=== PATIENT | female | born 1965 | race Caucasian/White ===

== ENCOUNTER 2019-06-10 22:15 | Inpatient (IN) | payer MEDICARE, BC ==
[~2019-06-10] VITALS: Ht 165.1 cm; Wt 37.6 kg
[2019-06-10 21:40] VITALS: BP 87/79
[2019-06-10 22:00] VITALS: BP 97/71
[2019-06-10 22:15] VITALS: BP 106/71
[2019-06-10 22:30] VITALS: BP 116/76
[2019-06-10 23:00] VITALS: BP 110/72
[2019-06-10] MEDS ORDERED: guaiFENesin ORAL 200 MG/10 ML LIQUID. PO PRN (23:15)
[2019-06-10] MEDS ORDERED: levOFLOXacin PER PHARMACY. MC PRN (23:15)
[2019-06-10] MEDS ORDERED: ACETAMINOPHEN 325 MG TABLET. PO PRN (23:15)
[2019-06-10] MEDS ORDERED: ONDANSETRON PF 4 MG/2 ML VIAL. IVP PRN (23:30)
[2019-06-10] MEDS ORDERED: IV NORMAL SALINE 1000ML BAG 1,000 ML IV ONE (23:30)
[2019-06-10] MEDS ORDERED: MORPHINE SULFATE 2 MG/ML VIAL. IV PRN (23:30)
[2019-06-11] VITALS (24 sets, daily range): BP systolic 102–171; BP diastolic 61–98
[2019-06-11] MEDS: IV NORMAL SALINE 1000ML BAG 1,000 ML IV SCH ×3 (00:56→20:28)
--- NOTE | 2019-06-11 01:45 | NUR ---
Pt brought to ICU room 110 at [place]140 [place] by two medics. Pt transferred with 4x assist to ICU bed; kept on BiPap during transfer. Pt tachycardic on admission. Pulse was 130-140s. All other VSS; pt afebrile. Pt alert and oriented to self and place, but confused related to time and situation. Pt lungs slightly coarse in the lower lobes. Pt appears malnourished; the bedscale read 66.3 lbs upon admission and pt stated she is 65 inches tall. Pt reported a regular appetite and diet at home. Pt unable to self report home meds, but did report her pharmacy. Called admitting physician, Dr. Berger to update on pt admission and status. Received orders for 1L bolus NS, PRN Lortab, PRN Robutussin, PRN Tylenol, NS at 100ml/hr, Levaquin per pharmacy, pulmonary consult, cardiology consult, NPO, Zofran PRN, Morphine PRN, CBC/BMP/PT/INR in am. Orders all entered into system. Pt pulse was down to 120s at rest. Pt has started pulling at bipap mask, needs reminded she needs to wear it to breathe efficiently right now. Pt is cooperative for short periods of time, then forgetful. Pt is within sight of care team. Will continue to monitor.
--- NOTE | 2019-06-11 04:14 | EKG ---
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
[2019-06-11 04:17] LABS: BASE EXCESS ABG 6 mmol/L (-3-3); FIO2 ABG 40; HCO3 ABG 32 mmol/L (21-28); PCO2 ABG 50 mmHg (35-46); PO2 ABG 95 mmHg (75-108); SAT O2 ABG 97 % (92-99)
--- NOTE | 2019-06-11 04:25 | NUR ---
Pt pulse continues to be in 120-130s, with SBP now in the 110s. Call placed to on-call , Dr. Saran Berger. Updated on pt status. Received orders to draw ABG, repeat EKG now. Orders entered into system. Will continue to monitor.
[2019-06-11 06:55] LABS: BASO # 0.1 x10^3/uL (0.0-0.2); BASO % 0 % (0-3); EOS % 0 % (0-3); HEMATOCRIT 39.5 % (36.0-47.0); HEMOGLOBIN 12.7 g/dL (12.0-15.5); LYMPH # 0.5 x10^3/uL (1.0-4.8); LYMPH % 2 % (24-48); MEAN CORPUSCULAR HEMOGLOBIN 31 pg (25-35); MEAN CORPUSCULAR HGB CONC 32 g/dL (31-37); MEAN CORPUSCULAR VOLUME 96 fL (79-100); MONO # 1.4 x10^3/uL (0.0-1.1); MONO % 5 % (0-9); NEUT # 24.7 x10^3/uL (1.8-7.7); NEUT % 92 % (31-73); PLATELET COUNT 289 x10^3/uL (140-400); RED BLOOD COUNT 4.14 x10^6/uL (3.50-5.40); WHITE BLOOD COUNT 26.8 x10^3/uL (4.0-11.0)
[2019-06-11 07:05] LABS: CALCIUM 8.2 mg/dL (8.5-10.1); CREATININE 0.8 mg/dL (0.6-1.0); GFR 74.7; POTASSIUM 4.2 mmol/L (3.5-5.1)
[2019-06-11 07:07] LABS: PROTHROMBIN TIME PATIENT 17.3 SEC (11.7-14.0)
[2019-06-11 10:23] LABS: % BANDS 2 % (0-9); % LYMPHS 2 % (24-48); % MONOS 5 % (0-10); % SEGS 91 % (35-66); PLT ESTIMATE ADEQUATE (ADEQUATE)
[2019-06-11 10:24] LABS: ANISOCYTOSIS SLIGHT; POLYCHROMASIA SLIGHT; TOXIC GRANULATION SLIGHT; TOXIC VACUOLATION SLIGHT
[2019-06-11] MEDS ORDERED: predniSONE 10 MG TABLET PO ONE (11:15)
[2019-06-11] MEDS ORDERED: NICOTINE 21MG PATCH. TD PRN (11:15)
--- NOTE | 2019-06-11 11:18 | PDOC1 ---
History and Physical Date of Admission Date of Admission DATE: 06/11/19 TIME: 11:07 Identification/Chief Complaint Chief Complaint SOA Source Source: Caregiver, Chart review, Patient History of Present Illness History of Present Illness She is a transfer from [place], She weighs 60 lbs, BMI 11, he tells me PCP Aware of it (WeighT) and had her thyroid checked and mentions she is due thyroid scan. She is not on any meds at home She came in severe SOA, ABG ph low, NIPPV at [facility], tachypneic, hypo tensive, with CXR that was read as normal After 500cc bolus, bipap er treatment, PH 7,4 with PCo2 60s and O2 60s and transferred here SHe had some NSTEMI leakage mild trop, but denied CP, She has no personal hx CAD, We opted not to do any lovenox or heparin as figured this could be from demand ischemia from here severe respi failure, She responded to ER tx at [facility]. But overnight, still tachy 130s-140s, with BP low side. I ordered 1L bolus and nS 100cc to maintain Pulmo and cards have been consulted , I started levaquin per pharmacy - started at [facility] She smokes a pack a day x 14 yrs She mentions weight loss maybe in 6 mos when i pried Past Medical History Cardiovascular: No pertinent hx Pulmonary: Bronchitis Musculoskeletal: Other (weight loss in the last 6mos) Past Surgical History Past Surgical History: No pertinent history Family History Family History: No Significant Social History Smoke: 1 pack per day ALCOHOL: none Drugs: None Current Medications Current Medications Current Medications Sodium Chloride 1,000 ml @ 1,000 mls/hr 1X ONCE IV Last administered on 06/10/19at 23:48; Start 06/10/19 at 23:30; Stop 06/11/19 at 00:29; Status DC Sodium Chloride 1,000 ml @ 100 mls/hr Q10H IV Last administered on 06/11/19at 00:56; Start 06/11/19 at 00:30 Acetaminophen/ Hydrocodone Bitart (Lortab 5/325) 1 tab PRN Q4HRS PRN PO PAIN; Start 06/10/19 at 23:15 Acetaminophen (Tylenol) 650 mg PRN Q6HRS PRN PO FEVER; Start 06/10/19 at 23:15 Guaifenesin (Robitussin) 200 mg PRN Q4HRS PRN PO COUGH; Start 06/10/19 at 23:15 Morphine Sulfate (Morphine Sulfate) 2 mg PRN Q2HR PRN IV PAIN Last administered on 06/11/19at 02:18; Start 06/10/19 at 23:30 Ondansetron HCl (Zofran) 4 mg PRN Q6HRS PRN IVP NAUSEA/VOMITING; Start 06/10/19 at 23:30 Levofloxacin/ Dextrose (Levaquin Per Pharmacy) 1 each PRN DAILY PRN MC SEE COMMENTS; Start 06/10/19 at 23:15 Levofloxacin/ Dextrose 100 ml @ 100 mls/hr Q24H IV ; Start 06/11/19 at 20:00 Albuterol/ Ipratropium (Duoneb) 3 ml RTQID NEB ; Start 06/11/19 at 12:00 Multivitamins (Thera M Plus) 1 tab DAILY PO ; Start 06/11/19 at 09:00 Allergies Allergies: Coded Allergies: Sulfa (Sulfonamide Antibiotics) (Verified Allergy, Unknown, 06/10/19) ROS Review of System weak, weight loss, SOA, per HPI,a ll else is neg Physical Exam General: Alert, Oriented X3, Cooperative, No acute distress HEENT: Atraumatic, PERRLA, Other (non palpable thyroid gland) Lungs: Clear to auscultation, Normal air movement Heart: S1S2, no thrills, no rubs, other (sinus tachy 130s) Cardiovascular: S1, S2 Breasts: Normal, Rt breast nml w/o mass, Lt breast nml w/o mass, Nipples normal Abdomen: Normal bowel sounds, Soft, No tenderness, No hepatosplenomegaly, No masses Rectal Exam: not examined PELVIC: Nml ext genitalia Extremities: No clubbing, No cyanosis, No edema, Normal pulses, No tenderness/swelling Skin: No rashes, No breakdown, No significant lesion Neuro: Normal gait, Normal speech, Strength at 5/5 X4 ext, Normal tone, Sensation intact, Cranial nerves 3-12 NL, Reflexes 2+ Psych/Mental Status: Mental status NL, Mood NL Vitals Vitals Vital Signs Date Time Temp Pulse Resp B/P (MAP) Pulse Ox O2 Delivery O2 Flow Rate FiO2 06/11/19 06:00 131 24 123/94 (104) 100 BiPAP/CPAP 06/11/19 04:00 99.5 99.5 Labs Labs Laboratory Tests Test 06/11/19 04:05 06/11/19 06:35 O2 Saturation 97 % (92-99) Arterial Blood pH 7.43 (7.35-7.45) Arterial Blood pCO2 at Patient Temp 50 mmHg (35-46) Arterial Blood pO2 at Patient Temp 95 mmHg (75-108) Arterial Blood HCO3 32 mmol/L (21-28) Arterial Blood Base Excess 6 mmol/L (-3-3) FiO2 40 White Blood Count 26.8 x10^3/uL (4.0-11.0) Red Blood Count 4.14 x10^6/uL (3.50-5.40) Hemoglobin 12.7 g/dL (12.0-15.5) Hematocrit 39.5 % (36.0-47.0) Mean Corpuscular Volume 96 fL (79-100) Mean Corpuscular Hemoglobin 31 pg (25-35) Mean Corpuscular Hemoglobin Concent 32 g/dL (31-37) Red Cell Distribution Width 16.0 % (11.5-14.5) Platelet Count 289 x10^3/uL (140-400) Neutrophils (%) (Auto) 92 % (31-73) Lymphocytes (%) (Auto) 2 % (24-48) Monocytes (%) (Auto) 5 % (0-9) Eosinophils (%) (Auto) 0 % (0-3) Basophils (%) (Auto) 0 % (0-3) Neutrophils # (Auto) 24.7 x10^3/uL (1.8-7.7) Lymphocytes # (Auto) 0.5 x10^3/uL (1.0-4.8) Monocytes # (Auto) 1.4 x10^3/uL (0.0-1.1) Eosinophils # (Auto) 0.0 x10^3/uL (0.0-0.7) Basophils # (Auto) 0.1 x10^3/uL (0.0-0.2) Segmented Neutrophils % 91 % (35-66) Band Neutrophils % 2 % (0-9) Lymphocytes % 2 % (24-48) Monocytes % 5 % (0-10) Toxic Granulation Slight Toxic Vacuolation Slight Platelet Estimate Adequate (ADEQUATE) Large Platelets Occ Polychromasia Slight Anisocytosis Slight Prothrombin Time 17.3 SEC (11.7-14.0) Prothromb Time International Ratio 1.4 (0.8-1.1) Sodium Level 145 mmol/L (136-145) Potassium Level 4.2 mmol/L (3.5-5.1) Chloride Level 101 mmol/L (98-107) Carbon Dioxide Level 35 mmol/L (21-32) Anion Gap 9 (6-14) Blood Urea Nitrogen 46 mg/dL (7-20) Creatinine 0.8 mg/dL (0.6-1.0) Estimated GFR (Cockcroft-Gault) 74.7 Glucose Level 86 mg/dL (70-99) Calcium Level 8.2 mg/dL (8.5-10.1) Laboratory Tests Test 06/11/19 04:05 06/11/19 06:35 O2 Saturation 97 % (92-99) Arterial Blood pH 7.43 (7.35-7.45) Arterial Blood pCO2 at Patient Temp 50 mmHg (35-46) Arterial Blood pO2 at Patient Temp 95 mmHg (75-108) Arterial Blood HCO3 32 mmol/L (21-28) Arterial Blood Base Excess 6 mmol/L (-3-3) FiO2 40 White Blood Count 26.8 x10^3/uL (4.0-11.0) Red Blood Count 4.14 x10^6/uL (3.50-5.40) Hemoglobin 12.7 g/dL (12.0-15.5) Hematocrit 39.5 % (36.0-47.0) Mean Corpuscular Volume 96 fL (79-100) Mean Corpuscular Hemoglobin 31 pg (25-35) Mean Corpuscular Hemoglobin Concent 32 g/dL (31-37) Red Cell Distribution Width 16.0 % (11.5-14.5) Platelet Count 289 x10^3/uL (140-400) Neutrophils (%) (Auto) 92 % (31-73) Lymphocytes (%) (Auto) 2 % (24-48) Monocytes (%) (Auto) 5 % (0-9) Eosinophils (%) (Auto) 0 % (0-3) Basophils (%) (Auto) 0 % (0-3) Neutrophils # (Auto) 24.7 x10^3/uL (1.8-7.7) Lymphocytes # (Auto) 0.5 x10^3/uL (1.0-4.8) Monocytes # (Auto) 1.4 x10^3/uL (0.0-1.1) Eosinophils # (Auto) 0.0 x10^3/uL (0.0-0.7) Basophils # (Auto) 0.1 x10^3/uL (0.0-0.2) Segmented Neutrophils % 91 % (35-66) Band Neutrophils % 2 % (0-9) Lymphocytes % 2 % (24-48) Monocytes % 5 % (0-10) Toxic Granulation Slight Toxic Vacuolation Slight Platelet Estimate Adequate (ADEQUATE) Large Platelets Occ Polychromasia Slight Anisocytosis Slight Prothrombin Time 17.3 SEC (11.7-14.0) Prothromb Time International Ratio 1.4 (0.8-1.1) Sodium Level 145 mmol/L (136-145) Potassium Level 4.2 mmol/L (3.5-5.1) Chloride Level 101 mmol/L (98-107) Carbon Dioxide Level 35 mmol/L (21-32) Anion Gap 9 (6-14) Blood Urea Nitrogen 46 mg/dL (7-20) Creatinine 0.8 mg/dL (0.6-1.0) Estimated GFR (Cockcroft-Gault) 74.7 Glucose Level 86 mg/dL (70-99) Calcium Level 8.2 mg/dL (8.5-10.1) VTE Prophylaxis Ordered VTE Prophylaxis Devices: Yes VTE Pharmacological Prophylaxi: Yes Assessment/Plan Assessment/Plan Severe mixed hypercapnic and hypoxic respi failure improved with NIPPV SINUS tachy HYPOTENSION,.fluid responsive CACHEXIA BMI 11 SMOker - 1 pack a day at least x 14 yrs NSTEMI Weight loss x 6 mos Thyroid prob? 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
[2019-06-11 11:28] LABS: FREE T4 1.07 ng/dL (0.76-1.46); THYROID STIM HORMONE (TSH) 0.147 uIU/mL (0.358-3.74)
[2019-06-11] MEDS: MULTIVITAMIN with MINERAL TABLET. PO SCH (11:48)
--- NOTE | 2019-06-11 11:49 | PDOC2 ---
CHASITY SANTILLAN CHIEF OPERATOR REFORMER 06/11/19 1149: CARDIAC CONSULT DATE OF CONSULT Date of Consult DATE: 06/11/19 TIME: 11:44 REASON FOR CONSULT Reason for Consult: NSTEMI REFERRING PHYSICIAN Referring Physician: Dr. Berger SOURCE Source: Chart review, Patient HISTORY OF PRESENT ILLNESS HISTORY OF PRESENT ILLNESS This is a 53 yo female who initially presented to [facility] secondary to shortness of breath. Patient has a history of oxygen dependent COPD and continued tobaccoism. Has chronic shortness of breath. Has been progressively worse the last weeks. Much worse the last couple of days. Had difficulty cat alaina her breath at home so she called EMS. Reports cough productive of clear sputum. No chest pain, palpitations, dizziness, diaphoresis, or nausea/vomiting. O2 saturations in 60's at [facility] and was placed on CPAP. Trop noted at 0.62. Was transferred to [facility] for further evaluation and treatment. Patient reports 30lb unintentional weight loss over the last 6 weeks. PAST MEDICAL HISTORY Cardiovascular: HTN Pulmonary: COPD CENTRAL NERVOUS SYSTEM: CVA Heme/Onc: Cancer (breast ) PAST SURGICAL HISTORY Past Surgical History: Other (left mastectomy ) FAMILY HISTORY Family History: Diabetes SOCIAL HISTORY Smoke: 1 pack per day ALCOHOL: occassional Drugs: None Lives: Alone CURRENT MEDICATIONS CURRENT MEDICATIONS Current Medications Medications (Trade) Dose Ordered Sig/Margarita Route PRN Reason Start Time Stop Time Status Last Admin Dose Admin Sodium Chloride 1,000 ml @ 1,000 mls/hr 1X ONCE IV 06/10/19 23:30 06/11/19 00:29 DC 06/10/19 23:48 Sodium Chloride 1,000 ml @ 100 mls/hr Q10H IV 06/11/19 00:30 06/11/19 00:56 Morphine Sulfate (Morphine Sulfate) 2 mg PRN Q2HR PRN IV PAIN 06/10/19 23:30 06/11/19 02:18 ALLERGIES ALLERGIES: Coded Allergies: Sulfa (Sulfonamide Antibiotics) (Verified Allergy, Unknown, 06/10/19) ROS Review of System 14 point ROS conducted with pertinent positives noted above in HPI. PHYSICAL EXAM General: Alert, Oriented X3, Cooperative, mild distress, Other (cachectic ) HEENT: Atraumatic, Mucous membr. moist/pink Lungs: Other (coarse throughout ) Heart: Other (ST rate 125.) Abdomen: Soft, No tenderness Extremities: Other (trace bilateral LE edema ) Skin: No significant lesion Neuro: Sensation intact Psych/Mental Status: Mental status NL MUSCULOSKELETAL: Osteoarthritic changes both hands VITALS/I&O VITALS/I&O: Vital Signs Date Time Temp Pulse Resp B/P (MAP) Pulse Ox O2 Delivery O2 Flow Rate FiO2 06/11/19 06:00 131 24 123/94 (104) 100 BiPAP/CPAP 06/11/19 04:00 99.5 99.5 I & O 06/10/19 06/10/19 06/11/19 15:00 23:00 07:00 Output Total 60 ml 660 ml Balance -60 ml -660 ml LABS Lab: Laboratory Tests Test 06/11/19 04:05 06/11/19 06:35 O2 Saturation 97 % (92-99) Arterial Blood pH 7.43 (7.35-7.45) Arterial Blood pCO2 at Patient Temp 50 mmHg (35-46) H Arterial Blood pO2 at Patient Temp 95 mmHg (75-108) Arterial Blood HCO3 32 mmol/L (21-28) H Arterial Blood Base Excess 6 mmol/L (-3-3) H FiO2 40 White Blood Count 26.8 x10^3/uL (4.0-11.0) H Red Blood Count 4.14 x10^6/uL (3.50-5.40) Hemoglobin 12.7 g/dL (12.0-15.5) Hematocrit 39.5 % (36.0-47.0) Mean Corpuscular Volume 96 fL (79-100) Mean Corpuscular Hemoglobin 31 pg (25-35) Mean Corpuscular Hemoglobin Concent 32 g/dL (31-37) Red Cell Distribution Width 16.0 % (11.5-14.5) H Platelet Count 289 x10^3/uL (140-400) Neutrophils (%) (Auto) 92 % (31-73) H Lymphocytes (%) (Auto) 2 % (24-48) L Monocytes (%) (Auto) 5 % (0-9) Eosinophils (%) (Auto) 0 % (0-3) Basophils (%) (Auto) 0 % (0-3) Neutrophils # (Auto) 24.7 x10^3/uL (1.8-7.7) H Lymphocytes # (Auto) 0.5 x10^3/uL (1.0-4.8) L Monocytes # (Auto) 1.4 x10^3/uL (0.0-1.1) H Eosinophils # (Auto) 0.0 x10^3/uL (0.0-0.7) Basophils # (Auto) 0.1 x10^3/uL (0.0-0.2) Segmented Neutrophils % 91 % (35-66) H Band Neutrophils % 2 % (0-9) Lymphocytes % 2 % (24-48) L Monocytes % 5 % (0-10) Toxic Granulation Slight Toxic Vacuolation Slight Platelet Estimate Adequate (ADEQUATE) Large Platelets Occ Polychromasia Slight Anisocytosis Slight Prothrombin Time 17.3 SEC (11.7-14.0) H Prothrombin Time INR 1.4 (0.8-1.1) H Sodium Level 145 mmol/L (136-145) Potassium Level 4.2 mmol/L (3.5-5.1) Chloride Level 101 mmol/L (98-107) Carbon Dioxide Level 35 mmol/L (21-32) H Anion Gap 9 (6-14) Blood Urea Nitrogen 46 mg/dL (7-20) H Creatinine 0.8 mg/dL (0.6-1.0) Estimated GFR (Cockcroft-Gault) 74.7 Glucose Level 86 mg/dL (70-99) Calcium Level 8.2 mg/dL (8.5-10.1) L Thyroid Stimulating Hormone (TSH) 0.147 uIU/mL (0.358-3.74) L Free Thyroxine 1.07 ng/dL (0.76-1.46) Free Triiodothyronine (T3) pg/mL Pending Laboratory Tests 06/11/19 06:35 Laboratory Tests 06/11/19 06:35 ASSESSMENT/PLAN ASSESSMENT/PLAN 1. Acute on chronic respiratory failure with AE COPD and continued tobaccoism 2. NTEMI; troponin 0.62. Most probably type, II demand ischemia secondary to above, hypoxia 3. Tobaccoism 4. Sinus tachycardia, physiologic secondary to AE COPD 5. Protein calorie malnutrition, FTT; BMI 11 6. H/o breast CA s/p mastectomy Recommendations Echo to assess LV systolic function ASA Lipids Lung optimization Encouraged tobacco cessations NEELA YATES MD 06/11/19 8196: CARDIAC CONSULT ASSESSMENT/PLAN ASSESSMENT/PLAN Patient seen and examined. Agree with above nurse practitioner note. Elevated troponin likely type II in the setting of significant stress and COPD exacerbation Discussed excessively with the family and given her significant weight loss recently and failure to thrive there is concern for underlying malignancy as well. Her echocardiogram is grossly unremarkable. No further cardiac testing necessary at this time. Supportive care. Consider social work instructor consult for placement. Discussed extensively with the patient's family as well. CHASITY SANTILLAN APRN Jun 11, 2019 11:49 NEELA YATES MD Jun 11, 2019 17:29
[2019-06-11] MEDS: HYDROcodone/APAP 5/325MG 1 TAB TABLET PO PRN (11:57)
[2019-06-11] MEDS: IPRATRPIUM/ALBUTEROL 0.5/2.5MG 3 ML NEBU. NEB SCH ×3 (12:05→19:41)
--- NOTE | 2019-06-11 12:38 | CONS ---
DATE OF CONSULTATION: 06/11/2019 ATTENDING PHYSICIAN: Simona Berger MD REASON FOR CONSULTATION: The patient seen in pulmonary consultation at the request of Dr. Berger for [id number] hypercapnic respiratory failure, requiring noninvasive ventilation. HISTORY OF PRESENT ILLNESS: The patient is a 53-year-old with severe COPD, chronic oxygen supplementation at home since 2011, continues to smoke, presented with 3- to 4-day history of increasing shortness of breath, cough productive of clear sputum. No hemoptysis; no documented fever; no chills; no nausea, vomiting, diarrhea. She arrived in [facility] Emergency Department with saturations of 60%. She was placed on CPAP. Saturation improved to 80%. She was then transferred to [facility] for further evaluation and management. Her white count initially was 25,000. Blood gas revealed a pH of 7.30, PaCO2 of 82, pO2 of 66. She is currently in the intensive care unit. She is awake, alert, following commands. I reviewed her x-ray, which reveals no acute infiltrates. PAST MEDICAL HISTORY: Chronic respiratory failure; COPD, tobacco dependent; history of breast cancer, status post right-sided mastectomy; severe protein malnutrition; previous CVA. SOCIAL HISTORY: She continues to smoke. Denies any alcohol intake. REVIEW OF SYSTEMS: As indicated above, otherwise, a 10-point system was reviewed and negative. ALLERGIES: SULFA. FAMILY HISTORY: No family history of lung disorders. CURRENT MEDICATIONS: List was reviewed. HOME MEDICATIONS: List was likewise reviewed. PHYSICAL EXAMINATION: GENERAL: The patient was in the intensive care unit. She was off of BiPAP. VITAL SIGNS: O2 saturation greater than 92%. HEENT: Eyes: The sclerae were nonicteric. NECK: Jugular venous distention was not elevated. No lymphadenopathy. CHEST: Full expansion. LUNGS: Very poor air flow with no wheezes. CARDIOVASCULAR: Regular rate and rhythm with S1, S2, no S3. ABDOMEN: Soft, nontender, nondistended. EXTREMITIES: No clubbing, cyanosis or edema. NEUROLOGIC: The patient was awake, alert, following commands. A detailed neuro exam was not performed. LABORATORY DATA: White count was elevated at 26,000, hemoglobin and hematocrit of 12 and 39. Arterial blood gas, repeat pH of 7.43, PaCO2 of 50 and pO2 of 95, bicarbonate of 32. BUN was 46, creatinine was 0.8. Chest x-ray as indicated above. IMPRESSION: 1. Ukghw-ay-ailtyxu hypoxemic hypercapnic respiratory failure. 2. Acute exacerbation of chronic obstructive pulmonary disease. 3. Suspect secondary pulmonary hypertension. 4. Tobacco dependent. 5. Severe protein malnutrition, present upon admission. 6. History of breast cancer, status post mastectomy. 7. Abnormal EKG, compatible with [id number]-xkmxqxd elevation myocardial infarction. PLAN: 1. We will continue current support with BiPAP. 2. Steroids. 3. Echocardiogram, case discussed with Dr. Blevins. 4. Continue empiric antibiotics. 5. The patient instructed on the importance of discontinuing tobacco use. 6. Consult dietitian. I do appreciate the privilege in sharing in the patient's care. Total cumulative critical care time of 55 minutes reviewing the data, labs, chest x-ray, and formulating a plan. HALIE PORTER MD DR: TAWNY/kenzie JOB#: [id number] / [id number]
--- NOTE | 2019-06-11 12:56 | CARD ---
MR#: [id number] Date of Study: 06/11/2019 Ordering Physician: CHASITY SANTILLAN, Referring Physician: CHASITY SANTILLAN, Tech: Daria Lucas [facility] APPROVED REPORT EXAM: Two-dimensional and M-mode echocardiogram with Doppler and color Doppler. Other Information Quality : Technically LimitedHR: 135bpm Rhythm : TachycardiaTechnically limited study due to body habitus & heart rate. INDICATION Elev Trop 2D DIMENSIONS RVDd2.7 (2.9-3.5cm)Left Atrium(2D)1.9 (1.6-4.0cm) IVSd0.9 (0.7-1.1cm)Aortic Root(2D)2.3 (2.0-3.7cm) LVDd3.0 (3.9-5.9cm)LVOT Diameter1.6 (1.8-2.4cm) PWd0.9 (0.7-1.1cm)LVDs2.1 (2.5-4.0cm) FS (%) 28.6 %SV19.1 ml LVEF(%)56.8 (>50%) M-Mode DIMENSIONS Left Atrium(MM)2.09 (2.5-4.0cm)Aortic Root2.64 (2.2-3.7cm) Aortic Valve AoV Peak Javy.104.2cm/sAoV VTI10.9cm AO Peak GR.4.3mmHgLVOT VTI 12.64cm AO Mean GR.2mmHgAVA (VTI)2.00cm2 Mitral Valve MV E Oglanaaz40.9cm/sMV DECEL [id number] MV A Hsiczwtg13.4cm/sE/A Ratio0.7 MV A Gybsfzek44vs LEFT VENTRICLE The left ventricle cavity is small. There is normal left ventricular wall thickness. The left ventric ular systolic function is normal and the ejection fraction is within normal range. The Ejection Fract ion is 60-65%. There is normal LV segmental wall motion. Transmitral Doppler flow pattern is abnormal . RIGHT VENTRICLE The right ventricle is mildly dilated. There is normal right ventricular wall thickness. The right ve ntricular systolic function is normal. ATRIA The left atrium size is normal. The right atrium size is normal. The interatrial septum is intact wit h no evidence for an atrial septal defect or patent foramen ovale as noted on 2-D or Doppler imaging. AORTIC VALVE Not well visualized. Doppler and Color Flow revealed no significant aortic regurgitation. There is no significant aortic valvular stenosis. There is no aortic valvular vegetation. MITRAL VALVE Not well visualized. There is no evidence of mitral valve prolapse. There is no mitral valve stenosis . Doppler and Color Flow revealed no mitral valve regurgitation noted. TRICUSPID VALVE Not well visualized. Doppler and Color Flow revealed no tricuspid valve regurgitation noted. There is no tricuspid valve prolapse or vegetation. PULMONIC VALVE The pulmonic valve is not well visualized. GREAT VESSELS The aortic root is normal in size. The ascending aorta is normal in size. The IVC is dilated and huma apses >50% with inspiration. PERICARDIAL EFFUSION There is no evidence of significant pericardial effusion. Critical Notification Critical Value: No <Conclusion> The left ventricular systolic function is normal and the ejection fraction is within normal range. Th e Ejection Fraction is 60-65%. There is normal LV segmental wall motion. The right ventricle is mildly dilated. Signed by : Chino Blevins, Electronically Approved : 06/11/2019 12:55:39
--- NOTE | 2019-06-11 14:44 | RAD ---
PORTABLE CHEST 1V INDICATION: Dyspnea. COMPARISON STUDY: 06/10/2019. FINDINGS: Lungs: Hyperexpanded lung volume. Prominent interstitial markings, slightly increased in the left upper lung zone. Pleura: No pleural effusion or pneumothorax. Heart and Mediastinum: Stable cardiomediastinal silhouette and great vessels. IMPRESSION: Prominent interstitial markings, slightly increased in the left upper lung zone. Electronically signed by: Cedrick Suggs MD (06/11/2019 2:41 PM) [facility]
[2019-06-11] MEDS: ASPIRIN ENTERIC COATED 81 MG TABLET.DR. PO SCH (17:54)
[2019-06-11] MEDS ORDERED: NAPR500T8 PO (18:00)
[2019-06-11] MEDS ORDERED: POTA20TA4 PO (18:00)
[2019-06-11] MEDS ORDERED: OXYC10TA46 PO (18:00)
[2019-06-11] MEDS ORDERED: HYDR-2769 PO (18:00)
[2019-06-11] MEDS ORDERED: GABA300C18 PO (18:00)
[2019-06-12] VITALS (16 sets, daily range): BP systolic 104–131; BP diastolic 66–80
[2019-06-12] MEDS: IPRATRPIUM/ALBUTEROL 0.5/2.5MG 3 ML NEBU. NEB SCH ×4 (08:25→20:15)
--- NOTE | 2019-06-12 08:42 | PDOC ---
PULMONARY PROGRESS NOTES Subjective PT OFF BIPAP FEELS BETTER Vitals Vital Signs Date Time Temp Pulse Resp B/P (MAP) Pulse Ox O2 Delivery O2 Flow Rate FiO2 06/12/19 08:26 98 Nasal Cannula 3.0 06/12/19 08:00 97.5 88 28 111/69 (83) 97.5 ROS: No Chest Pain, No Abdominal Pain, No Increase Cough General: Alert Lungs: Clear Cardiovascular: S1, S2 Abdomen: Soft Neuro Exam: Alert Extremities: No Edema Skin: Warm Labs Laboratory Tests Test 06/11/19 04:05 06/11/19 06:35 O2 Saturation 97 % (92-99) Arterial Blood pH 7.43 (7.35-7.45) Arterial Blood pCO2 at Patient Temp 50 mmHg (35-46) Arterial Blood pO2 at Patient Temp 95 mmHg (75-108) Arterial Blood HCO3 32 mmol/L (21-28) Arterial Blood Base Excess 6 mmol/L (-3-3) FiO2 40 White Blood Count 26.8 x10^3/uL (4.0-11.0) Red Blood Count 4.14 x10^6/uL (3.50-5.40) Hemoglobin 12.7 g/dL (12.0-15.5) Hematocrit 39.5 % (36.0-47.0) Mean Corpuscular Volume 96 fL (79-100) Mean Corpuscular Hemoglobin 31 pg (25-35) Mean Corpuscular Hemoglobin Concent 32 g/dL (31-37) Red Cell Distribution Width 16.0 % (11.5-14.5) Platelet Count 289 x10^3/uL (140-400) Neutrophils (%) (Auto) 92 % (31-73) Lymphocytes (%) (Auto) 2 % (24-48) Monocytes (%) (Auto) 5 % (0-9) Eosinophils (%) (Auto) 0 % (0-3) Basophils (%) (Auto) 0 % (0-3) Neutrophils # (Auto) 24.7 x10^3/uL (1.8-7.7) Lymphocytes # (Auto) 0.5 x10^3/uL (1.0-4.8) Monocytes # (Auto) 1.4 x10^3/uL (0.0-1.1) Eosinophils # (Auto) 0.0 x10^3/uL (0.0-0.7) Basophils # (Auto) 0.1 x10^3/uL (0.0-0.2) Segmented Neutrophils % 91 % (35-66) Band Neutrophils % 2 % (0-9) Lymphocytes % 2 % (24-48) Monocytes % 5 % (0-10) Toxic Granulation Slight Toxic Vacuolation Slight Platelet Estimate Adequate (ADEQUATE) Large Platelets Occ Polychromasia Slight Anisocytosis Slight Prothrombin Time 17.3 SEC (11.7-14.0) Prothromb Time International Ratio 1.4 (0.8-1.1) Sodium Level 145 mmol/L (136-145) Potassium Level 4.2 mmol/L (3.5-5.1) Chloride Level 101 mmol/L (98-107) Carbon Dioxide Level 35 mmol/L (21-32) Anion Gap 9 (6-14) Blood Urea Nitrogen 46 mg/dL (7-20) Creatinine 0.8 mg/dL (0.6-1.0) Estimated GFR (Cockcroft-Gault) 74.7 Glucose Level 86 mg/dL (70-99) Calcium Level 8.2 mg/dL (8.5-10.1) Triglycerides Level 101 mg/dL (0-150) Cholesterol Level 120 mg/dL (0-200) LDL Cholesterol, Calculated 60 mg/dL (0-100) VLDL Cholesterol, Calculated 20 mg/dL (0-40) Non-HDL Cholesterol Calculated 80 mg/dL (0-129) HDL Cholesterol 40 mg/dL (40-60) Cholesterol/HDL Ratio 3.0 Thyroid Stimulating Hormone (TSH) 0.147 uIU/mL (0.358-3.74) Free Thyroxine 1.07 ng/dL (0.76-1.46) Free Triiodothyronine (T3) pg/mL 0.97 pg/mL (2.18-3.98) Medications Active Scripts Medications Dose Route/Sig Max Daily Dose Days Date Category Potassium Chloride (Potassium Chloride) 20 Meq Tablet.er 20 Meq PO BID 06/11/19 Reported Gabapentin (Gabapentin) 300 Mg Capsule 300 Mg PO BID 06/11/19 Reported Oxycontin (Oxycodone HCl) 10 Mg Tab.er.12h 1 Tab PO TID MDD 3 Tablet(s) 30 06/11/19 Reported Naproxen 500 Mg Tablet. 1 Tab PO BID 06/11/19 Reported Hydrocodone-Apap 10-325 (Hydrocodone Bit/Acetaminophen) 1 Tab Tablet 1 Tab PO PRN Q8HRS PRN 06/11/19 Reported Impression . IMPRESSION: 1. Vikhz-bb-jrrgeza hypoxemic hypercapnic respiratory failure. 2. Acute exacerbation of chronic obstructive pulmonary disease. 3. Suspect secondary pulmonary hypertension. 4. Tobacco dependent. 5. Severe protein malnutrition, present upon admission. 6. History of breast cancer, status post mastectomy. 7. Abnormal EKG, compatible with [id number] elevation myocardial infarction. ECHO <Conclusion> The left ventricular systolic function is normal and the ejection fraction is within normal range. The Ejection Fraction is 60-65%. There is normal LV segmental wall motion. The right ventricle is mildly dilated. Plan . 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
[2019-06-12] MEDS: ASPIRIN ENTERIC COATED 81 MG TABLET.DR. PO SCH (09:49)
[2019-06-12] MEDS: MULTIVITAMIN with MINERAL TABLET. PO SCH (09:49)
[2019-06-12] MEDS: predniSONE 20 MG TABLET PO SCH (09:55)
[2019-06-12] MEDS: IV NORMAL SALINE 1000ML BAG 1,000 ML IV SCH (10:09)
--- NOTE | 2019-06-12 12:04 | PDOC ---
PROGRESS NOTES Chief Complaint Chief Complaint Severe mixed hypercapnic and hypoxic respi failure improved with NIPPV SINUS tachy better HYPOTENSION,.fluid responsive CACHEXIA BMI 11 SMOker - 1 pack a day at least x 14 yrs NSTEMI Weight loss x 6 mos Thyroid prob? HX breast cancer, stage 2 s.p tx (lumpectomya nd radiation)- yearly mammogram normal hx routine c scope- clean History of Present Illness History of Present Illness echo reasurring Off bipap Hsuband concerned about weight On NS 100cc and has gotten 4 L NO complaints, just weak HR 1teens, tells me her pCP has her on unrecalled med (samples) for tachy TSH and T4 not convincing for abN PLAN: GET that med from her PCP OK to t.o 6S Shift to procalamine FUll code Check CT chest with IV in this smoker Dw RN and START MARINOL Vitals Vitals Vital Signs Date Time Temp Pulse Resp B/P (MAP) Pulse Ox O2 Delivery O2 Flow Rate FiO2 06/12/19 09:16 110 28 113/76 (88) 97 Nasal Cannula 3.0 06/12/19 08:00 97.5 97.5 Physical Exam General: Alert, Oriented X3, Cooperative, mild distress, Other (cachectic ) Heart: Other (ST rate 125.) Lungs: Clear Abdomen: Soft, No tenderness Extremities: Other (trace bilateral LE edema ) Skin: No significant lesion Review of Systems Review of Systems weak, poor pO< all else neg Comment Review of Relevant I have reviewed the following items justin (where applicable) has been applied. Labs Laboratory Tests Test 06/11/19 04:05 06/11/19 06:35 O2 Saturation 97 % (92-99) Arterial Blood pH 7.43 (7.35-7.45) Arterial Blood pCO2 at Patient Temp 50 mmHg (35-46) Arterial Blood pO2 at Patient Temp 95 mmHg (75-108) Arterial Blood HCO3 32 mmol/L (21-28) Arterial Blood Base Excess 6 mmol/L (-3-3) FiO2 40 White Blood Count 26.8 x10^3/uL (4.0-11.0) Red Blood Count 4.14 x10^6/uL (3.50-5.40) Hemoglobin 12.7 g/dL (12.0-15.5) Hematocrit 39.5 % (36.0-47.0) Mean Corpuscular Volume 96 fL (79-100) Mean Corpuscular Hemoglobin 31 pg (25-35) Mean Corpuscular Hemoglobin Concent 32 g/dL (31-37) Red Cell Distribution Width 16.0 % (11.5-14.5) Platelet Count 289 x10^3/uL (140-400) Neutrophils (%) (Auto) 92 % (31-73) Lymphocytes (%) (Auto) 2 % (24-48) Monocytes (%) (Auto) 5 % (0-9) Eosinophils (%) (Auto) 0 % (0-3) Basophils (%) (Auto) 0 % (0-3) Neutrophils # (Auto) 24.7 x10^3/uL (1.8-7.7) Lymphocytes # (Auto) 0.5 x10^3/uL (1.0-4.8) Monocytes # (Auto) 1.4 x10^3/uL (0.0-1.1) Eosinophils # (Auto) 0.0 x10^3/uL (0.0-0.7) Basophils # (Auto) 0.1 x10^3/uL (0.0-0.2) Segmented Neutrophils % 91 % (35-66) Band Neutrophils % 2 % (0-9) Lymphocytes % 2 % (24-48) Monocytes % 5 % (0-10) Toxic Granulation Slight Toxic Vacuolation Slight Platelet Estimate Adequate (ADEQUATE) Large Platelets Occ Polychromasia Slight Anisocytosis Slight Prothrombin Time 17.3 SEC (11.7-14.0) Prothromb Time International Ratio 1.4 (0.8-1.1) Sodium Level 145 mmol/L (136-145) Potassium Level 4.2 mmol/L (3.5-5.1) Chloride Level 101 mmol/L (98-107) Carbon Dioxide Level 35 mmol/L (21-32) Anion Gap 9 (6-14) Blood Urea Nitrogen 46 mg/dL (7-20) Creatinine 0.8 mg/dL (0.6-1.0) Estimated GFR (Cockcroft-Gault) 74.7 Glucose Level 86 mg/dL (70-99) Calcium Level 8.2 mg/dL (8.5-10.1) Triglycerides Level 101 mg/dL (0-150) Cholesterol Level 120 mg/dL (0-200) LDL Cholesterol, Calculated 60 mg/dL (0-100) VLDL Cholesterol, Calculated 20 mg/dL (0-40) Non-HDL Cholesterol Calculated 80 mg/dL (0-129) HDL Cholesterol 40 mg/dL (40-60) Cholesterol/HDL Ratio 3.0 Thyroid Stimulating Hormone (TSH) 0.147 uIU/mL (0.358-3.74) Free Thyroxine 1.07 ng/dL (0.76-1.46) Free Triiodothyronine (T3) pg/mL 0.97 pg/mL (2.18-3.98) Microbiology 06/11/19 Blood Culture - Preliminary, Resulted NO GROWTH AFTER 1 DAY Medications Current Medications Sodium Chloride 1,000 ml @ 1,000 mls/hr 1X ONCE IV Last administered on 06/10/19at 23:48; Start 06/10/19 at 23:30; Stop 06/11/19 at 00:29; Status DC Sodium Chloride 1,000 ml @ 100 mls/hr Q10H IV Last administered on 06/12/19at 10:09; Start 06/11/19 at 00:30 Acetaminophen/ Hydrocodone Bitart (Lortab 5/325) 1 tab PRN Q4HRS PRN PO PAIN Last administered on 06/11/19at 11:57; Start 06/10/19 at 23:15 Acetaminophen (Tylenol) 650 mg PRN Q6HRS PRN PO FEVER; Start 06/10/19 at 23:15 Guaifenesin (Robitussin) 200 mg PRN Q4HRS PRN PO COUGH; Start 06/10/19 at 23:15 Morphine Sulfate (Morphine Sulfate) 2 mg PRN Q2HR PRN IV PAIN Last administered on 06/11/19at 02:18; Start 06/10/19 at 23:30 Ondansetron HCl (Zofran) 4 mg PRN Q6HRS PRN IVP NAUSEA/VOMITING; Start 06/10/19 at 23:30 Levofloxacin/ Dextrose (Levaquin Per Pharmacy) 1 each PRN DAILY PRN MC SEE COMMENTS; Start 06/10/19 at 23:15; Stop 06/11/19 at 11:17; Status DC Levofloxacin/ Dextrose 100 ml @ 100 mls/hr Q24H IV Last administered on 06/11/19at 20:27; Start 06/11/19 at 20:00 Albuterol/ Ipratropium (Duoneb) 3 ml RTQID NEB Last administered on 06/12/19 08:25; Start 06/11/19 at 12:00 Multivitamins (Thera M Plus) 1 tab DAILY PO Last administered on 06/12/19 09:49; Start 06/11/19 at 09:00 Nicotine (Nicoderm Cq 21mg) 1 patch PRN DAILY PRN TD SMOKING CESSATION Last administered on 06/11/19 11:49; Start 06/11/19 at 11:15 Prednisone (Prednisone) 30 mg 1X ONCE PO Last administered on 06/11/19 11:48; Start 06/11/19 at 11:15; Stop 06/11/19 at 11:21; Status DC Prednisone (Prednisone) 30 mg DAILY PO Last administered on 06/12/19 09:55; Start 06/12/19 at 09:00 Aspirin (Ecotrin) 81 mg DAILYWBKFT PO Last administered on 06/12/19 09:49; Start 06/11/19 at 12:00 Active Scripts Active Reported Potassium Chloride (Potassium Chloride) 20 Meq Tablet.er 20 Meq PO BID Gabapentin (Gabapentin) 300 Mg Capsule 300 Mg PO BID Oxycontin (Oxycodone HCl) 10 Mg Tab.er.12h 1 Tab PO TID MDD 3 Tablet(s) 30 Days Naproxen 500 Mg Tablet. 1 Tab PO BID Hydrocodone-Apap 10-325 (Hydrocodone Bit/Acetaminophen) 1 Tab Tablet 1 Tab PO PRN Q8HRS PRN Vitals/I & O Vital Sign - Last 24 Hours 06/11/19 06/11/19 06/11/19 06/11/19 12:07 12:57 13:00 14:00 Pulse 138 134 Resp 36 33 B/P (MAP) 124/75 (91) 110/73 (85) Pulse Ox 98 98 96 96 O2 Delivery Nasal Cannula Nasal Cannula Nasal Cannula Nasal Cannula O2 Flow Rate 4.0 4.0 3.0 3.0 06/11/19 06/11/19 06/11/19 06/11/19 14:00 15:00 16:00 16:00 Temp 98.7 98.7 Pulse 128 128 120 Resp 34 30 28 B/P (MAP) 111/72 (85) 109/72 (84) 115/74 (88) Pulse Ox 96 95 97 O2 Delivery Nasal Cannula Nasal Cannula Nasal Cannula Nasal Cannula O2 Flow Rate 3.0 3.0 3.0 3.0 06/11/19 06/11/19 06/11/19 06/11/19 16:14 17:00 18:00 19:00 Pulse 116 118 122 Resp 28 B/P (MAP) 113/70 (84) 114/74 (87) 112/68 (83) Pulse Ox 98 99 99 98 O2 Delivery Nasal Cannula Nasal Cannula Nasal Cannula Nasal Cannula O2 Flow Rate 4.0 3.0 3.0 3.0 06/11/19 06/11/19 06/11/19 06/11/19 19:42 20:00 20:00 21:00 Temp 98.5 98.5 Pulse 120 124 Resp B/P (MAP) 103/74 (84) 108/66 (80) Pulse Ox 98 98 98 O2 Delivery Nasal Cannula Nasal Cannula Nasal Cannula Nasal Cannula O2 Flow Rate 3.0 3.0 3.0 3.0 06/11/19 06/11/19 06/12/19 06/12/19 22:00 23:00 00:00 00:00 Temp 98.1 98.1 Pulse 120 114 96 Resp 24 B/P (MAP) 102/61 (75) 105/71 (82) 107/69 (82) Pulse Ox 98 99 100 O2 Delivery Nasal Cannula Nasal Cannula Nasal Cannula Nasal Cannula O2 Flow Rate 3.0 3.0 3.0 3.0 06/12/19 06/12/19 06/12/19 06/12/19 01:00 02:00 03:00 04:00 Pulse 96 93 94 Resp B/P (MAP) 104/67 (79) 113/71 (85) 108/67 (81) Pulse Ox 99 100 100 O2 Delivery Nasal Cannula Nasal Cannula Nasal Cannula Nasal Cannula O2 Flow Rate 3.0 3.0 3.0 3.0 06/12/19 06/12/19 06/12/19 06/12/19 04:00 05:00 06:03 07:00 Temp 97.9 97.9 Pulse 88 90 84 86 Resp 30 B/P (MAP) 109/66 (80) 113/68 (83) 112/66 (81) 112/69 (83) Pulse Ox 100 99 100 O2 Delivery Nasal Cannula Nasal Cannula Nasal Cannula Nasal Cannula O2 Flow Rate 3.0 3.0 3.0 3.0 06/12/19 06/12/19 06/12/19 08:00 08:26 09:16 Temp 97.5 97.5 Pulse 88 110 Resp 28 28 B/P (MAP) 111/69 (83) 113/76 (88) Pulse Ox 97 98 97 O2 Delivery Nasal Cannula Nasal Cannula Nasal Cannula O2 Flow Rate 3.0 3.0 3.0 Intake and Output 06/11/19 06/11/19 06/12/19 14:59 22:59 06:59 Intake Total 450 ml 680 ml 934 ml Output Total 205 ml 545 ml 660 ml Balance 245 ml 135 ml 274 ml Nutrition Consultation Dietary Evaluation: Recommendations by RD: Dietary education by RD, Increase Calorie Intake, Protein supplementation Comments: REC regular diet, honor food preferences, provide snacks/supplements as requested REC Ensure TID (chocolate) Expected Outcomes/Goals: PO intake to meet >75% est needs Malnutrition Findings: Body Fat Depletion (Non Severe: Mod to Severe Weight Status: Emaciated GEMINI COLBERT MD Jun 12, 2019 12:04
[2019-06-12] MEDS ORDERED: CONTRAST GIVEN. MC PRN (12:15)
[2019-06-12] MEDS ORDERED: IOHEXOL 300 MG/ML 100ML VIAL. IV ONE (12:15)
--- NOTE | 2019-06-12 12:55 | PDOC ---
SACHI ALCARAZ YARD PERSON 06/12/19 1255: CARDIO Progress Notes Date and Time Date of Service 06/12/2019 Time of Evaluation 1230 Subjective Subjective: No Chest Pain, No Palpitations, Other (SOA with activity) Vitals Vitals Vital Signs Date Time Temp Pulse Resp B/P (MAP) Pulse Ox O2 Delivery O2 Flow Rate FiO2 06/12/19 12:17 98 Nasal Cannula 3.0 06/12/19 09:16 110 28 113/76 (88) 06/12/19 08:00 97.5 97.5 Weight Weight [ ] Input and Output Intake and Output Intake and Output 06/12/19 07:00 Intake Total 2064 ml Output Total 1435 ml Balance 629 ml Intake Oral 1450 ml IV Total 614 ml Output Urine Total 1435 ml Microbiology Micro Microbiology 06/11/19 Blood Culture - Preliminary, Resulted NO GROWTH AFTER 1 DAY Physical Exam HEENT: Neck Supple W Full Motion Chest: Symmetric LUNGS: Other (diffuse faint wheeze) Heart: S1S2, RRR (sinus tach), other (sinus tachy 130s) Abdomen: Soft N/T Extremities: No Calf Tenderness Neurology: alert, oriented, follow commands Assessment Assessment 1. Acute on chronic respiratory failure with AECOPD and continued tobaccoism 2. NSTEMI; troponin 0.62. Most probably type, II demand ischemia secondary to above, hypoxia. CP free. EF and WM nml 3. Tobaccoism 4. Sinus tachycardia, physiologic secondary to AECOPD, rate stable at 110s 5. Protein calorie malnutrition, FTT; BMI 11 6. H/o breast CA s/p mastectomy Recommendations 1. Pt was placed on corlanor as an outpt as her baseline rate is at high end. 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 2. Continue pulmonary optimization 3. Smoking cessation 4. May need SNU placement 5. Nothing further cardiac arredondo. NEELA YATES MD 06/13/19 1516: CARDIO Progress Notes Plan Plan Late entry for 06/12/2019 Pt. seen and examined. 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 No acute events overnight. Normal echo EF. Supportive care. Pls call with questions. SACHI ALCARAZ YARD PERSON Jun 12, 2019 12:55 NEELA YATES MD Jun 13, 2019 15:16
[2019-06-12] MEDS: AMINO AC 3%/ELECTROLYTE/GLYCER 1,000 ML IV SCH (13:30)
--- NOTE | 2019-06-12 14:58 | RAD ---
Examination: CT CHEST W/CONTRAST History: Weight loss. Significant smoking history. Comparison/Correlation: 07/09/2016 CTA of the chest Findings: Axial images of the chest were obtained following IV contrast. Sagittal and coronal reformatted images were provided. Calcific involvement of the aortic arch vessels at their origins noted. Thoracic aorta contour is unremarkable. No enlarged thoracic lymph nodes. Extensive emphysematous involvement of the lung jones is present. Small left pleural effusion is present. Left posterior basilar dependent atelectasis. Interstitial thickening at the posterior basilar aspect of the left probably related to atelectasis also seen. Left anterior upper thoracic pleural thickening and irregularity is unchanged compared to the prior exam minimal right apical pleural thickening is present. Small nodule at the lateral right mid thoracic level near the pleura is a small amount of calcification within it and is unchanged. No dominant mass identified. Tracheobronchial tree is grossly unremarkable. There is opacification noted involving a left lower lobe bronchus and this is best seen on axial image 45 of series 2. No pleural or pericardial effusion. No enlarged thoracic lymph nodes. Partially visualized upper abdomen is unremarkable. Bony structures are unremarkable. Impression: Left upper anterior thoracic pleural thickening is unchanged. Right anterior upper thoracic pleural thickening is mildly increased in size. Interval follow-up CT to assess stability in 6 months recommended. Left lower lobe secondary bronchus opacification is noted probably related to mucus although mass lesion is not excluded at this time. Minimal left lower lobe posterior basilar atelectasis. Recommend short-term interval follow-up CT in 6 weeks to assess resolution. Extensive centrilobular emphysema. Small left pleural effusion. PQRS Compliance Statement: One or more of the following individualized dose reduction techniques were utilized for this examination: 1. Automated exposure control 2. Adjustment of the mA and/or kV according to patient size 3. Use of iterative reconstruction technique Electronically signed by: Abner Reza MD (06/12/2019 2:55 PM) [facility]
--- NOTE | 2019-06-12 15:00 | NUR ---
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 Confirmation per phone for med -Corlenor 5 MG. Checked w our pharmacy and do not have on formulary. Venancio informed. Connie asked son to bring in home med so may be continued 06/13/2019. Feeling better w slightly improved appetite. 1/4 of each meal. NS dc'd, ProcalAmine started w explanation on Rx to patient vs NS gtt. C/o "gas". Meds ordered and given as needed. Condition stable ,lung jones improved. Able to downgrade to CVC status
[2019-06-12] MEDS ORDERED: SIMETHICONE 80 MG TAB.CHEW PO PRN (15:30)
[2019-06-12] MEDS: DRONABINOL 2.5 MG CAPSULE. PO SCH (17:19)
[2019-06-12] MEDS: HYDROcodone/APAP 5/325MG 1 TAB TABLET PO PRN (20:42)
[2019-06-13 03:38] VITALS: BP 124/84
[2019-06-13] MEDS: AMINO AC 3%/ELECTROLYTE/GLYCER 1,000 ML IV SCH ×2 (03:51→14:34)
[2019-06-13 07:00] VITALS: BP 139/91
[2019-06-13] MEDS: ASPIRIN ENTERIC COATED 81 MG TABLET.DR. PO SCH (08:58)
[2019-06-13] MEDS: MULTIVITAMIN with MINERAL TABLET. PO SCH (08:58)
[2019-06-13] MEDS: predniSONE 20 MG TABLET PO SCH (08:58)
[2019-06-13] MEDS: IPRATRPIUM/ALBUTEROL 0.5/2.5MG 3 ML NEBU. NEB SCH ×4 (09:07→20:06)
[2019-06-13 10:17] LABS: BASO % 0 % (0-3); EOS % 0 % (0-3); LYMPH # 1.2 x10^3/uL (1.0-4.8); LYMPH % 10 % (24-48); MEAN CORPUSCULAR HEMOGLOBIN 31 pg (25-35); MEAN CORPUSCULAR HGB CONC 32 g/dL (31-37); MEAN CORPUSCULAR VOLUME 95 fL (79-100); MONO # 1.3 x10^3/uL (0.0-1.1); MONO % 11 % (0-9); NEUT # 9.8 x10^3/uL (1.8-7.7); NEUT % 79 % (31-73); PLATELET COUNT 273 x10^3/uL (140-400); RED BLOOD COUNT 3.91 x10^6/uL (3.50-5.40); RED CELL DISTRIBUTION WIDTH 16.2 % (11.5-14.5); WHITE BLOOD COUNT 12.4 x10^3/uL (4.0-11.0)
--- NOTE | 2019-06-13 10:26 | PDOC ---
PROGRESS NOTES Chief Complaint Chief Complaint Severe mixed hypercapnic and hypoxic respi failure improved with NIPPV SINUS tachy better on colranone per PCP HYPOTENSION,.fluid responsive RESOLVED CACHEXIA BMI 11 - on marinol at home SMOker - 1 pack a day at least x [address] NSTEMI Weight loss x 6 mos Thyroid prob? HX breast cancer, stage 2 s.p tx (lumpectomya nd radiation)- yearly mammogram normal hx routine c scope- clean History of Present Illness History of Present Illness echo reasurring Off bipap Hsuband concerned about weight On NS 100cc and has gotten 4 L - now stopped SHIFTED to procalamine for more calories NO complaints, just weak - has not ambulated yet on colranone at home for sinus tachy per PCP TSH and T4 not convincing for abN CT chest:Left upper anterior thoracic pleural thickening is unchanged. Right anterior upper thoracic pleural thickening is mildly increased in size. Interval follow-up CT to assess stability in 6 months recommended. Left lower lobe secondary bronchus opacification is noted probably related to mucus although mass lesion is not excluded at this time. Minimal left lower lobe posterior basilar atelectasis. Recommend short-term interval follow-up CT in 6 weeks to assess resolution. Extensive centrilobular emphysema. Small left pleural effusion. CONSTPATED PLAN: await pulmo re above CT chest abN - i dw her and left the copy of results COnt prolamaine, mariniol and colranone PO Dc marti ADd pT OT BOwel regimen Cont IV levaquin for now CT above, either furthe eval while in house or short interval CT in 6 weeks once post abx - BUTS HE DOES SMOKER AND HAS HAD SIGNIF WEIGHT LOSS Vitals Vitals Vital Signs Date Time Temp Pulse Resp B/P (MAP) Pulse Ox O2 Delivery O2 Flow Rate FiO2 06/13/19 08:40 95 Nasal Cannula 3.0 06/13/19 07:00 98.4 90 18 139/91 (107) 98.4 Physical Exam General: Alert, Oriented X3, Cooperative, mild distress, Other (cachectic ) Heart: Other (ST rate 125.) Lungs: Clear Abdomen: Soft, No tenderness Extremities: Other (trace bilateral LE edema ) Skin: No significant lesion Review of Systems Review of Systems weak, constipated, all else is neg Comment Review of Relevant I have reviewed the following items justin (where applicable) has been applied. Labs Microbiology 06/11/19 Blood Culture - Preliminary, Resulted NO GROWTH AFTER 2 DAYS Medications Current Medications Sodium Chloride 1,000 ml @ 1,000 mls/hr 1X ONCE IV Last administered on 06/10/19at 23:48; Start 06/10/19 at 23:30; Stop 06/11/19 at 00:29; Status DC Sodium Chloride 1,000 ml @ 100 mls/hr Q10H IV Last administered on 06/12/19at 10:09; Start 06/11/19 at 00:30; Stop 06/12/19 at 12:02; Status DC Acetaminophen/ Hydrocodone Bitart (Lortab 5/325) 1 tab PRN Q4HRS PRN PO PAIN Last administered on 06/12/19at 20:42; Start 06/10/19 at 23:15 Acetaminophen (Tylenol) 650 mg PRN Q6HRS PRN PO FEVER; Start 06/10/19 at 23:15 Guaifenesin (Robitussin) 200 mg PRN Q4HRS PRN PO COUGH; Start 06/10/19 at 23:15 Morphine Sulfate (Morphine Sulfate) 2 mg PRN Q2HR PRN IV PAIN Last administered on 06/11/19at 02:18; Start 06/10/19 at 23:30 Ondansetron HCl (Zofran) 4 mg PRN Q6HRS PRN IVP NAUSEA/VOMITING; Start 06/10/19 at 23:30 Levofloxacin/ Dextrose (Levaquin Per Pharmacy) 1 each PRN DAILY PRN MC SEE COMMENTS; Start 06/10/19 at 23:15; Stop 06/11/19 at 11:17; Status DC Levofloxacin/ Dextrose 100 ml @ 100 mls/hr Q24H IV Last administered on 06/12/19at 20:31; Start 06/11/19 at 20:00 Albuterol/ Ipratropium (Duoneb) 3 ml RTQID NEB Last administered on 06/13/19at 09:07; Start 06/11/19 at 12:00 Multivitamins (Thera M Plus) 1 tab DAILY PO Last administered on 06/13/19at 08:58; Start 06/11/19 at 09:00 Nicotine (Nicoderm Cq 21mg) 1 patch PRN DAILY PRN TD SMOKING CESSATION Last administered on 06/11/19at 11:49; Start 06/11/19 at 11:15 Prednisone (Prednisone) 30 mg 1X ONCE PO Last administered on 06/11/19at 11:48; Start 06/11/19 at 11:15; Stop 06/11/19 at 11:21; Status DC Prednisone (Prednisone) 30 mg DAILY PO Last administered on 06/13/19 08:58; Start 06/12/19 at 09:00 Aspirin (Ecotrin) 81 mg DAILYWBKFT PO Last administered on 06/13/19at 08:58; Start 06/11/19 at 12:00 Amino Acids/ Glycerin/ Electrolytes 1,000 ml @ 80 mls/hr [id number] IV Last administered on 06/13/19 03:51; Start 06/12/19 at 12:00 Dronabinol (Marinol) 2.5 mg BIDACLD PO Last administered on 06/12/19at 17:19; Start 06/12/19 at 16:30 Iohexol (Omnipaque 300 Mg/ml) 75 ml 1X ONCE IV Last administered on 06/12/19at 12:15; Start 06/12/19 at 12:15; Stop 06/12/19 at 12:16; Status DC Info (CONTRAST GIVEN -- Rx MONITORING) 1 each PRN DAILY PRN MC SEE COMMENTS; Start 06/12/19 at 12:15; Stop 06/14/19 at 12:14 Simethicone (Gas-X) 80 mg PRN AFTMEALHC PRN PO GAS / BLOATING Last administered on 06/12/19at 15:39; Start 06/12/19 at 15:30 Active Scripts Active Reported Potassium Chloride (Potassium Chloride) 20 Meq Tablet.er 20 Meq PO BID Gabapentin (Gabapentin) 300 Mg Capsule 300 Mg PO BID Oxycontin (Oxycodone HCl) 10 Mg Tab.er.12h 1 Tab PO TID MDD 3 Tablet(s) 30 Days Naproxen 500 Mg Tablet. 1 Tab PO BID Hydrocodone-Apap 10-325 (Hydrocodone Bit/Acetaminophen) 1 Tab Tablet 1 Tab PO PRN Q8HRS PRN Vitals/I & O Vital Sign - Last 24 Hours 06/12/19 06/12/19 06/12/19 06/12/19 11:00 12:00 12:00 12:17 Temp 98.0 98.0 Pulse 115 108 Resp 25 30 B/P (MAP) 117/76 (90) 120/80 (93) Pulse Ox 98 96 98 O2 Delivery Nasal Cannula Nasal Cannula Nasal Cannula Nasal Cannula O2 Flow Rate 3.0 3.0 3.0 3.0 06/12/19 06/12/19 06/12/19 06/12/19 16:20 17:00 18:39 19:50 Temp 98.6 98.6 98.6 98.6 Pulse 105 103 Resp 22 20 B/P (MAP) 120/76 (91) 131/80 (97) Pulse Ox 98 97 97 O2 Delivery Nasal Cannula Nasal Cannula Nasal Cannula Nasal Cannula O2 Flow Rate 3.0 3.0 3.0 2.0 06/12/19 06/12/19 06/12/19 06/12/19 20:16 20:42 21:42 22:34 Temp 99.2 99.2 Pulse 103 Resp 15 B/P (MAP) 115/71 (86) Pulse Ox 97 100 O2 Delivery Nasal Cannula Nasal Cannula Nasal Cannula O2 Flow Rate 3.0 2.0 2.0 06/13/19 06/13/19 06/13/19 03:38 07:00 08:40 Temp 98.2 98.4 98.2 98.4 Pulse 106 90 Resp 18 18 B/P (MAP) 124/84 (97) 139/91 (107) Pulse Ox 98 98 95 O2 Delivery Nasal Cannula Nasal Cannula Nasal Cannula O2 Flow Rate 2.0 3.0 3.0 Intake and Output 06/12/19 06/12/19 06/13/19 15:00 23:00 07:00 Intake Total 1260 ml 410 ml Output Total 300 ml 600 ml 300 ml Balance 960 ml -190 ml -300 ml Nutrition Consultation Dietary Evaluation: Recommendations by RD: Dietary education by RD, Increase Calorie Intake, Protein supplementation Comments: REC regular diet, honor food preferences, provide snacks/supplements as requested REC Ensure TID (chocolate) Expected Outcomes/Goals: PO intake to meet >75% est needs Malnutrition Findings: Body Fat Depletion (Non Severe: Mod to Severe Weight Status: Emaciated GEMINI COLBERT MD Jun 13, 2019 10:26
[2019-06-13] MEDS ORDERED: DOCUSATE SODIUM 100 MG CAPSULE. PO PRN (10:30)
[2019-06-13] MEDS ORDERED: MAGNESIUM HYDROXIDE 2,400 MG/30 ML ORAL.SUSP. PO ONE (10:30)
[2019-06-13] MEDS ORDERED: MAGNESIUM HYDROXIDE 2,400 MG/30 ML ORAL.SUSP. PO PRN (10:30)
[2019-06-13] MEDS ORDERED: POLYETHYLENE GLYCOL 3350 17 GM PACKET. PO PRN (10:30)
[2019-06-13 10:45] LABS: ALBUMIN 2.5 g/dL (3.4-5.0); ALBUMIN/GLOBULIN RATIO 0.8 (1.0-1.7); CALCIUM 8.3 mg/dL (8.5-10.1); CREATININE 0.5 mg/dL (0.6-1.0); GFR 128.6; POTASSIUM 3.5 mmol/L (3.5-5.1); TOTAL BILIRUBIN 0.6 mg/dL (0.2-1.0); TOTAL PROTEIN 5.8 g/dL (6.4-8.2)
[2019-06-13 11:00] VITALS: BP 131/78
[2019-06-13] MEDS: DRONABINOL 2.5 MG CAPSULE. PO SCH ×2 (11:38→17:26)
--- NOTE | 2019-06-13 14:09 | PDOC ---
PULMONARY PROGRESS NOTES Subjective NO NEW SYMPTOMS PT OFF BIPAP FEELS BETTER Vitals Vital Signs Date Time Temp Pulse Resp B/P (MAP) Pulse Ox O2 Delivery O2 Flow Rate FiO2 06/13/19 13:08 97 Nasal Cannula 3.0 06/13/19 11:00 98.4 116 18 131/78 (95) 98.4 ROS: No Nausea, No Chest Pain, No Abdominal Pain, No Increase Cough General: Alert Lungs: Clear Cardiovascular: S1, S2 Abdomen: Soft Neuro Exam: Alert Extremities: No Edema Skin: Warm Labs Laboratory Tests Test 06/13/19 10:00 White Blood Count 12.4 x10^3/uL (4.0-11.0) Red Blood Count 3.91 x10^6/uL (3.50-5.40) Hemoglobin 12.0 g/dL (12.0-15.5) Hematocrit 37.0 % (36.0-47.0) Mean Corpuscular Volume 95 fL (79-100) Mean Corpuscular Hemoglobin 31 pg (25-35) Mean Corpuscular Hemoglobin Concent 32 g/dL (31-37) Red Cell Distribution Width 16.2 % (11.5-14.5) Platelet Count 273 x10^3/uL (140-400) Neutrophils (%) (Auto) 79 % (31-73) Lymphocytes (%) (Auto) 10 % (24-48) Monocytes (%) (Auto) 11 % (0-9) Eosinophils (%) (Auto) 0 % (0-3) Basophils (%) (Auto) 0 % (0-3) Neutrophils # (Auto) 9.8 x10^3/uL (1.8-7.7) Lymphocytes # (Auto) 1.2 x10^3/uL (1.0-4.8) Monocytes # (Auto) 1.3 x10^3/uL (0.0-1.1) Eosinophils # (Auto) 0.0 x10^3/uL (0.0-0.7) Basophils # (Auto) 0.0 x10^3/uL (0.0-0.2) Sodium Level 141 mmol/L (136-145) Potassium Level 3.5 mmol/L (3.5-5.1) Chloride Level 98 mmol/L (98-107) Carbon Dioxide Level 38 mmol/L (21-32) Anion Gap 5 (6-14) Blood Urea Nitrogen 18 mg/dL (7-20) Creatinine 0.5 mg/dL (0.6-1.0) Estimated GFR (Cockcroft-Gault) 128.6 BUN/Creatinine Ratio 36 (6-20) Glucose Level 122 mg/dL (70-99) Calcium Level 8.3 mg/dL (8.5-10.1) Total Bilirubin 0.6 mg/dL (0.2-1.0) Aspartate Amino Transf (AST/SGOT) 117 U/L (15-37) Alanine Aminotransferase (ALT/SGPT) 267 U/L (14-59) Alkaline Phosphatase 86 U/L (46-116) Total Protein 5.8 g/dL (6.4-8.2) Albumin 2.5 g/dL (3.4-5.0) Albumin/Globulin Ratio 0.8 (1.0-1.7) Laboratory Tests Test 06/13/19 10:00 White Blood Count 12.4 x10^3/uL (4.0-11.0) Red Blood Count 3.91 x10^6/uL (3.50-5.40) Hemoglobin 12.0 g/dL (12.0-15.5) Hematocrit 37.0 % (36.0-47.0) Mean Corpuscular Volume 95 fL (79-100) Mean Corpuscular Hemoglobin 31 pg (25-35) Mean Corpuscular Hemoglobin Concent 32 g/dL (31-37) Red Cell Distribution Width 16.2 % (11.5-14.5) Platelet Count 273 x10^3/uL (140-400) Neutrophils (%) (Auto) 79 % (31-73) Lymphocytes (%) (Auto) 10 % (24-48) Monocytes (%) (Auto) 11 % (0-9) Eosinophils (%) (Auto) 0 % (0-3) Basophils (%) (Auto) 0 % (0-3) Neutrophils # (Auto) 9.8 x10^3/uL (1.8-7.7) Lymphocytes # (Auto) 1.2 x10^3/uL (1.0-4.8) Monocytes # (Auto) 1.3 x10^3/uL (0.0-1.1) Eosinophils # (Auto) 0.0 x10^3/uL (0.0-0.7) Basophils # (Auto) 0.0 x10^3/uL (0.0-0.2) Sodium Level 141 mmol/L (136-145) Potassium Level 3.5 mmol/L (3.5-5.1) Chloride Level 98 mmol/L (98-107) Carbon Dioxide Level 38 mmol/L (21-32) Anion Gap 5 (6-14) Blood Urea Nitrogen 18 mg/dL (7-20) Creatinine 0.5 mg/dL (0.6-1.0) Estimated GFR (Cockcroft-Gault) 128.6 BUN/Creatinine Ratio 36 (6-20) Glucose Level 122 mg/dL (70-99) Calcium Level 8.3 mg/dL (8.5-10.1) Total Bilirubin 0.6 mg/dL (0.2-1.0) Aspartate Amino Transf (AST/SGOT) 117 U/L (15-37) Alanine Aminotransferase (ALT/SGPT) 267 U/L (14-59) Alkaline Phosphatase 86 U/L (46-116) Total Protein 5.8 g/dL (6.4-8.2) Albumin 2.5 g/dL (3.4-5.0) Albumin/Globulin Ratio 0.8 (1.0-1.7) Medications Active Scripts Medications Dose Route/Sig Max Daily Dose Days Date Category Potassium Chloride (Potassium Chloride) 20 Meq Tablet.er 20 Meq PO BID 06/11/19 Reported Gabapentin (Gabapentin) 300 Mg Capsule 300 Mg PO BID 06/11/19 Reported Oxycontin (Oxycodone HCl) 10 Mg Tab.er.12h 1 Tab PO TID MDD 3 Tablet(s) 30 06/11/19 Reported Naproxen 500 Mg Tablet.dr 1 Tab PO BID 06/11/19 Reported Hydrocodone-Apap 10-325 (Hydrocodone Bit/Acetaminophen) 1 Tab Tablet 1 Tab PO PRN Q8HRS PRN 06/11/19 Reported Impression . IMPRESSION: 1. Lylhw-sc-irjhykg hypoxemic hypercapnic respiratory failure. 2. Acute exacerbation of chronic obstructive pulmonary disease. 3. Suspect secondary pulmonary hypertension. 4. Tobacco dependent. 5. Severe protein malnutrition, present upon admission. 6. History of breast cancer, status post mastectomy. 7. Abnormal EKG, compatible with [id number] elevation myocardial infarction. ECHO <Conclusion> The left ventricular systolic function is normal and the ejection fraction is within normal range. The Ejection Fraction is 60-65%. There is normal LV segmental wall motion. The right ventricle is mildly dilated. Plan . DOING BETTER PT TO EVALUATE HOME IN AM OK PRN BIPAP ECHO NOTED ANTIBX FOLLOW VP [employer] SUPPORT INPUT HALIE PORTER MD Jun 13, 2019 14:09
[2019-06-13 15:00] VITALS: BP 108/75
--- NOTE | 2019-06-13 15:57 | NUR ---
Aldridge pulled this shift and patient up to the toilet and able to void.Patients son brought Eddie for the pt from home. Patient agreed to send to pharmacy for a label. Medication in the med room.
[2019-06-13 19:23] VITALS: BP 123/75
[2019-06-13] MEDS: LACTOBACILLUS RHAMNOSUS GG 1 CAPSULE. PO SCH (21:50)
[2019-06-13 22:28] VITALS: BP 145/87
[2019-06-14] MEDS: AMINO AC 3%/ELECTROLYTE/GLYCER 1,000 ML IV SCH (00:49)
[2019-06-14 03:55] VITALS: BP 125/79
[2019-06-14 07:00] VITALS: BP 129/82
[2019-06-14] MEDS ORDERED: LEVO500T59 PO (07:37)
[2019-06-14] MEDS ORDERED: MULT1TAB90 PO (07:37)
[2019-06-14] MEDS ORDERED: ALBU2.5V8 IH (07:37)
[2019-06-14] MEDS ORDERED: BUDE180A IH (07:37)
[2019-06-14] MEDS ORDERED: PRED20TA PO (07:37)
[2019-06-14] MEDS ORDERED: DRON2.5C PO (07:37)
[2019-06-14] MEDS: predniSONE 20 MG TABLET PO SCH (07:51)
[2019-06-14] MEDS: LACTOBACILLUS RHAMNOSUS GG 1 CAPSULE. PO SCH (07:51)
[2019-06-14] MEDS: ASPIRIN ENTERIC COATED 81 MG TABLET.DR. PO SCH (07:51)
[2019-06-14] MEDS: DRONABINOL 2.5 MG CAPSULE. PO SCH (07:51)
[2019-06-14] MEDS: MULTIVITAMIN with MINERAL TABLET. PO SCH (07:51)
[2019-06-14] MEDS: IPRATRPIUM/ALBUTEROL 0.5/2.5MG 3 ML NEBU. NEB SCH ×2 (08:19→11:40)
[2019-06-14 11:00] VITALS: BP 111/72
--- NOTE | 2019-06-14 11:43 | PDOC3 ---
Discharge Summary Visit Information Date of Admission: Jun 10, 2019 Date of Discharge: Jun 14, 2019 Admitting Diagnosis Comment: Severe mixed hypercapnic and hypoxic respi failure improved with NIPPV SINUS tachy better on colranone per PCP HYPOTENSION,.fluid responsive RESOLVED CACHEXIA BMI 11 - on marinol at home SMOker - 1 pack a day at least x [address] NSTEMI Weight loss x 6 mos Thyroid prob? HX breast cancer, stage 2 s.p tx (lumpectomya nd radiation)- yearly mammogram normal hx routine c scope- clean Brief Hospital Course Allergies Allergies Coded Allergies Type Severity Reaction Last Updated Verified Sulfa (Sulfonamide Antibiotics) Allergy Intermediate 06/12/19 Yes Vital Signs Vital Signs Date Time Temp Pulse Resp B/P (MAP) Pulse Ox O2 Delivery O2 Flow Rate FiO2 06/14/19 08:23 97 Nasal Cannula 1.0 06/14/19 07:00 98.3 106 16 129/82 (98) 98.3 Lab Results Laboratory Tests Test 06/13/19 10:00 White Blood Count 12.4 x10^3/uL (4.0-11.0) Red Blood Count 3.91 x10^6/uL (3.50-5.40) Hemoglobin 12.0 g/dL (12.0-15.5) Hematocrit 37.0 % (36.0-47.0) Mean Corpuscular Volume 95 fL (79-100) Mean Corpuscular Hemoglobin 31 pg (25-35) Mean Corpuscular Hemoglobin Concent 32 g/dL (31-37) Red Cell Distribution Width 16.2 % (11.5-14.5) Platelet Count 273 x10^3/uL (140-400) Neutrophils (%) (Auto) 79 % (31-73) Lymphocytes (%) (Auto) 10 % (24-48) Monocytes (%) (Auto) 11 % (0-9) Eosinophils (%) (Auto) 0 % (0-3) Basophils (%) (Auto) 0 % (0-3) Neutrophils # (Auto) 9.8 x10^3/uL (1.8-7.7) Lymphocytes # (Auto) 1.2 x10^3/uL (1.0-4.8) Monocytes # (Auto) 1.3 x10^3/uL (0.0-1.1) Eosinophils # (Auto) 0.0 x10^3/uL (0.0-0.7) Basophils # (Auto) 0.0 x10^3/uL (0.0-0.2) Sodium Level 141 mmol/L (136-145) Potassium Level 3.5 mmol/L (3.5-5.1) Chloride Level 98 mmol/L (98-107) Carbon Dioxide Level 38 mmol/L (21-32) Anion Gap 5 (6-14) Blood Urea Nitrogen 18 mg/dL (7-20) Creatinine 0.5 mg/dL (0.6-1.0) Estimated GFR (Cockcroft-Gault) 128.6 BUN/Creatinine Ratio 36 (6-20) Glucose Level 122 mg/dL (70-99) Calcium Level 8.3 mg/dL (8.5-10.1) Total Bilirubin 0.6 mg/dL (0.2-1.0) Aspartate Amino Transf (AST/SGOT) 117 U/L (15-37) Alanine Aminotransferase (ALT/SGPT) 267 U/L (14-59) Alkaline Phosphatase 86 U/L (46-116) Total Protein 5.8 g/dL (6.4-8.2) Albumin 2.5 g/dL (3.4-5.0) Albumin/Globulin Ratio 0.8 (1.0-1.7) Brief Hospital Course Ms. Harper is a 53 old white female who follows with PCP and has he on colranon for sinus tachy, SHE WAS admitted bec of hypotension,tachycardia, BP was fluid responsive, needed ICU just overnight (dont thnk she needed pressor), She is already on mar[facility]ol [facility], weight 60 lbs, She is eating, i added nutrition consult and procalamine gtt while here, REcent mammogram done, hx stage 2 breats CA treated, c scope last 5 yrs "ok", CT chest in this smoker, some haziness, recommeded [address] after abx and i have written scripts for abx, inahler and rpt CT in jul 2019. Dw her, time 32 mins discussing the dc plans consults: pulmo PRoc; none CT chest with iv contrast Discharge Information Condition at Discharge: Improved, Stable Disposition/Orders: D/C to Home Scheduled Budesonide (Pulmicort Flexhaler) 180 Mcg Aer.pow.ba, 2 PUFF IH BID for copd, #1 Ref 6 Prescribed by: GEMINI COLBERT on 06/14/19736 Dronabinol (Marinol) 2.5 Mg Capsule, 2.5 MG PO BIDACLD for appetite stim, #60 Prescribed by: GEMINI COLBERT on 06/14/19736 Gabapentin (Gabapentin ) 300 Mg Capsule, 300 MG PO BID for NEUROGENIC PAIN, (R eported) Entered as Reported by: SARIAH TELLEZ on 06/11/191799 Last Action: New Order on 06/11/191799 by SARIAH TELLEZ Levofloxacin (Levaquin) 500 Mg Tablet, 1 TAB PO DAILY for bronchitis for 7 Days, #7 Ref 0 Prescribed by: GEMINI COLBERT on 06/14/19736 Multivits,Ca,Minerals/Iron/Fa (Thera-M Tablet) 1 Each Tablet, 1 TAB PO DAILY for mvi, #30 Prescribed by: GEMINI COLBERT on 06/14/19736 Naproxen (Naproxen) 500 Mg Tablet.dr, 1 TAB PO BID for rx, #60 Ref 2 (Reported) Entered as Reported by: SARIAH TELLEZ on 06/11/191799 Last Action: New Order on 06/11/191799 by SARIAH TELLEZ Potassium Chloride (Potassium Chloride ) 20 Meq Tablet.er, 20 MEQ PO BID for SUPPLEMENT, (Reported) Entered as Reported by: SARIAH TELLEZ on 06/11/191799 Last Action: New Order on 06/11/191799 by SARIAH TELLEZ Prednisone (Prednisone) 20 Mg Tablet, 30 MG PO DAILY for copd for 6 Days, #9 daily x 3 days then taper by 10 mgs q2 days then stop Prescribed by: GEMINI COLBERT on 06/14/19736 Scheduled PRN Albuterol Sulfate (Proair Hfa) 8.5 Gm Hfa.aer.ad, 2 PUFF IH PRN Q4-6HRS PRN for wheezing for 21 Days, #1 Ref 0 Prescribed by: GEMINI COLBERT on 06/14/19736 Hydrocodone Bit/Acetaminophen (Hydrocodone-Apap 10-325 ) 1 Tab Tablet, 1 TAB PO PRN Q8HRS PRN for PAIN, Ref 0 (Reported) Entered as Reported by: SARIAH TELLEZ on 06/11/191799 Last Action: New Order on 06/11/191799 by SARIAH TELLEZ Discontinued Medications Oxycodone HCl (Oxycontin) 10 Mg Tab.er.12h, 1 TAB PO TID for pain MDD 3 Tablet(s) for 30 Days, #90 Ref 0 (Reported) Entered as Reported by: SARIAH TELLEZ on 06/11/191799 Last Action: New Order on 06/11/191799 by GEMINI MCNEAL MD Jun 14, 2019 11:43
--- NOTE | 2019-06-14 12:27 | NUR ---
SS following for discharge planning. SS reviewed pt chart. Pt is from home and is currently requiring oxygen. Pt has home oxygen at home. SS met with pt to discuss discharge planning. Pt requesting home healthcare with no preference of company. Physician notified. SS phoned and faxed referral to [facility], ; fax [phone]. SS will continue to follow for discharge planning.
--- NOTE | 2019-06-14 12:38 | SNU/HH DC ---
DISCHARGE WITH HOME HEALTH DISCHARGE INFORMATION: Discharge Date: Jun 14, 2019 Condition on Discharge: Stable CODE STATUS: Code Status: Full HOME HEALTH: Face to Face: I certify this patient is under my care and that I, or a nurse practitioner or physician's commercial loan assistant working with me, had a face to face encounter that meets the physician face to face encounter requirements with this patient on []. Medical Complications: Falls RN For Eval/Treatment: Yes Physical Therapy For: Evalulation/Treatment Occupational Therapy For: Evaluation/Treatment Home Health Aide For: Self-care WEIGHT CLERK For: Community [employer] Pt Meets Homebound Status: Extreme weakness w/ amb. POST DISCHARGE ORDERS: DIET AFTER DISCHARGE: Regular CHECKS AFTER DISCHARGE: Checks after discharge: Check blood press - daily TREATMENT/EQUIPMENT ORDERS: Adaptive Equipment Issued: None CERTIFICATION STATEMENT: Certification Statement: Certification Statement: Based on the above finding, I certify that this patient is confined to the home and needs intermittent halfway care, physical therapy and/or speech therapy, or continues to need occupational therapy.~ This patient is under my care, and I have initiated the establishment of the plan of care.~ This patient will be followed by myself or a community physician who will periodically review the plan of care. Home Meds Active Scripts Levofloxacin (LEVAQUIN) 500 Mg Tablet, 1 TAB PO DAILY for bronchitis for 7 Days, #7 TAB 0 Refills Prov:GEMINI COLBERT MD 06/14/19 Budesonide (PULMICORT FLEXHALER) 180 Mcg Aer.pow.ba, 2 PUFF IH BID for copd, #1 INHALER 6 Refills Prov:GEMINI COLBERT MD 06/14/19 Albuterol Sulfate (Proair Hfa) 8.5 Gm Hfa.aer.ad, 2 PUFF IH PRN Q4-6HRS PRN for wheezing for 21 Days, #1 INHALER 0 Refills Prov:GEMINI COLBERT MD 06/14/19 Prednisone (PREDNISONE) 20 Mg Tablet, 30 MG PO DAILY for copd for 6 Days, #9 TAB daily x 3 days then taper by 10 mgs q2 days then stop Prov:GEMINI COLBERT MD 06/14/19 Multivits,Ca,Minerals/Iron/Fa (THERA-M TABLET) 1 Each Tablet, 1 TAB PO DAILY for mvi, #30 TAB Prov:GEMINI COLBERT MD 06/14/19 Dronabinol (MARINOL) 2.5 Mg Capsule, 2.5 MG PO BIDACLD for appetite stim, #60 CAP Prov:GEMINI COLBERT MD 06/14/19 Reported Medications Potassium Chloride (POTASSIUM CHLORIDE ) 20 Meq Tablet.er, 20 MEQ PO BID for SUPPLEMENT, TAB.SR 06/11/19 Gabapentin (GABAPENTIN ) 300 Mg Capsule, 300 MG PO BID for NEUROGENIC PAIN, CAP 06/11/19 Naproxen (NAPROXEN) 500 Mg Tablet.dr, 1 TAB PO BID for rx, #60 TAB 2 Refills 06/11/19 Hydrocodone Bit/Acetaminophen (HYDROCODONE-APAP 10-325 ) 1 Tab Tablet, 1 TAB PO PRN Q8HRS PRN for PAIN, TAB 0 Refills 06/11/19 Discontinued Reported Medications Oxycodone HCl (Oxycontin) 10 Mg Tab.er.12h, 1 TAB PO TID for pain MDD 3 Tablet(s) for 30 Days, #90 TAB 0 Refills 06/11/19 GEMINI COLBERT MD Jun 14, 2019 12:38
[2019-06-14 15:19] VITALS: BP 140/86
--- NOTE | 2019-06-14 15:20 | PDOC ---
PULMONARY PROGRESS NOTES Subjective NO NEW SYMPTOMS PT OFF BIPAP FEELS BETTER Vitals Vital Signs Date Time Temp Pulse Resp B/P (MAP) Pulse Ox O2 Delivery O2 Flow Rate FiO2 06/14/19 11:41 Nasal Cannula 1.0 06/14/19 11:00 98.6 105 16 111/72 (85) 97 98.6 ROS: No Nausea, No Chest Pain, No Abdominal Pain, No Increase Cough General: Alert Lungs: Clear Cardiovascular: S1, S2 Abdomen: Soft Neuro Exam: Alert Extremities: No Edema Skin: Warm Labs Laboratory Tests Test 06/13/19 10:00 White Blood Count 12.4 x10^3/uL (4.0-11.0) Red Blood Count 3.91 x10^6/uL (3.50-5.40) Hemoglobin 12.0 g/dL (12.0-15.5) Hematocrit 37.0 % (36.0-47.0) Mean Corpuscular Volume 95 fL (79-100) Mean Corpuscular Hemoglobin 31 pg (25-35) Mean Corpuscular Hemoglobin Concent 32 g/dL (31-37) Red Cell Distribution Width 16.2 % (11.5-14.5) Platelet Count 273 x10^3/uL (140-400) Neutrophils (%) (Auto) 79 % (31-73) Lymphocytes (%) (Auto) 10 % (24-48) Monocytes (%) (Auto) 11 % (0-9) Eosinophils (%) (Auto) 0 % (0-3) Basophils (%) (Auto) 0 % (0-3) Neutrophils # (Auto) 9.8 x10^3/uL (1.8-7.7) Lymphocytes # (Auto) 1.2 x10^3/uL (1.0-4.8) Monocytes # (Auto) 1.3 x10^3/uL (0.0-1.1) Eosinophils # (Auto) 0.0 x10^3/uL (0.0-0.7) Basophils # (Auto) 0.0 x10^3/uL (0.0-0.2) Sodium Level 141 mmol/L (136-145) Potassium Level 3.5 mmol/L (3.5-5.1) Chloride Level 98 mmol/L (98-107) Carbon Dioxide Level 38 mmol/L (21-32) Anion Gap 5 (6-14) Blood Urea Nitrogen 18 mg/dL (7-20) Creatinine 0.5 mg/dL (0.6-1.0) Estimated GFR (Cockcroft-Gault) 128.6 BUN/Creatinine Ratio 36 (6-20) Glucose Level 122 mg/dL (70-99) Calcium Level 8.3 mg/dL (8.5-10.1) Total Bilirubin 0.6 mg/dL (0.2-1.0) Aspartate Amino Transf (AST/SGOT) 117 U/L (15-37) Alanine Aminotransferase (ALT/SGPT) 267 U/L (14-59) Alkaline Phosphatase 86 U/L (46-116) Total Protein 5.8 g/dL (6.4-8.2) Albumin 2.5 g/dL (3.4-5.0) Albumin/Globulin Ratio 0.8 (1.0-1.7) Medications Active Scripts Medications Dose Route/Sig Max Daily Dose Days Date Category Potassium Chloride (Potassium Chloride) 20 Meq Tablet.er 20 Meq PO BID 06/11/19 Reported Gabapentin (Gabapentin) 300 Mg Capsule 300 Mg PO BID 06/11/19 Reported Oxycontin (Oxycodone HCl) 10 Mg Tab.er.12h 1 Tab PO TID MDD 3 Tablet(s) 30 06/11/19 Reported Naproxen 500 Mg Tablet.dr 1 Tab PO BID 06/11/19 Reported Hydrocodone-Apap 10-325 (Hydrocodone Bit/Acetaminophen) 1 Tab Tablet 1 Tab PO PRN Q8HRS PRN 06/11/19 Reported Impression . IMPRESSION: 1. Eumwp-kq-vxyzwlu hypoxemic hypercapnic respiratory failure. 2. Acute exacerbation of chronic obstructive pulmonary disease. 3. Suspect secondary pulmonary hypertension. 4. Tobacco dependent. 5. Severe protein malnutrition, present upon admission. 6. History of breast cancer, status post mastectomy. 7. Abnormal EKG, compatible with dbo-DW-lroziza elevation myocardial infarction. ECHO <Conclusion> The left ventricular systolic function is normal and the ejection fraction is within normal range. The Ejection Fraction is 60-65%. There is normal LV segmental wall motion. The right ventricle is mildly dilated. Plan . HOME follow up in office with HALIE Perea MD Jun 14, 2019 15:20
--- NOTE | 2019-06-14 16:13 | NUR ---
Discharge Note: LEYLA VACA Discharge instructions and discharge home medications reviewed with Patient and a copy given. All questions have been answered and understanding verbalized. The following instructions and handouts were given:DISCHARGE INSTRUCTION, WRITTEN PRESCRIPTIONS, FOLLOW UP INSTRUCTIONS Discontinued lines and drains: DISCONTINUED IV, DRESSING CLEAN, DRY AND intact. Patient discharged to HOME with [facility]
== END 2019-06-14 15:50 | disposition home health service (06) | DRG 280 ==
LOC: 1 WEST ICU 22:15 → 2 NORTH 06-12 16:00
PROVIDERS: ADMIT Internal Medicine; ATTEND Internal Medicine
PROC: 5A09357 Assistance with Respiratory Ventilation, Less than 24 Consecutive Hours, Continuous Positive Airway Pressure (ICD-10-PCS; principal; 2019-06-10)
DX: I21.4 Non-ST elevation (NSTEMI) myocardial infarction (principal); J96.21 Acute and chronic respiratory failure with hypoxia; E43 Unspecified severe protein-calorie malnutrition; J96.22 Acute and chronic respiratory failure with hypercapnia; R64 Cachexia; Z68.1 Body mass index [BMI] 19.9 or less, adult; I10 Essential (primary) hypertension; J43.2 Centrilobular emphysema; I27.20 Pulmonary hypertension, unspecified; F17.210 Nicotine dependence, cigarettes, uncomplicated; Z88.2 Allergy status to sulfonamides; Z90.12 Acquired absence of left breast and nipple; Z99.81 Dependence on supplemental oxygen; Z85.3 Personal history of malignant neoplasm of breast; Z86.73 Personal history of transient ischemic attack (TIA), and cerebral infarction without residual deficits; Z83.3 Family history of diabetes mellitus
CPT/HCPCS: 36415; 36600; 71045; 71260; 80048; 80053; 80061; 82805; 84439; 84443; 84481; 85007; 85025; 85610; 87040; 93005; 93306; 94640; 94660; 94760; J1956; J2270; J7030; J7512; J7620; Q0167; Q9967; 97110; G0378